=== PATIENT | female | born 1950 | race Caucasian/White ===

== ENCOUNTER → 2016-04-15 | Outpatient (CLI) | payer BC ==
[~2016-04-15] MED LIST: ADVIN25/60 INH; ASPI-232 PO; AZAT50TA17 PO; CALC600T24 PO; CONJ0.3T3 PO; GADAVIST IV PRN; MULT-513 PO; PRED-301 PO
--- NOTE | 2016-04-15 15:53 | DIAGNOSTIC IMAGING REPORT ---
MRI OF THE THORACIC SPINE COMBO CLINICAL HISTORY: Thoracic back pain. Reported history of an abnormal chest CT at an outside institution. COMPARISON STUDY: No priors. TECHNIQUE: MRI of the thoracic spine is performed utilizing various T1 and T2-weighted sequences in the axial and sagittal planes. Contrast-enhanced sequences were acquired following the IV administration of 7 cc of Gadavist. FINDINGS: Vertebral body height and alignment are maintained throughout the thoracic spine. Normal marrow signal intensity is preserved throughout the visualized bony structures. Tiny anterior osteophytes are noted throughout. The spinous processes appear intact. A hemangioma is incidentally noted in the body of T12. No destructive bony lesion is seen. Mild degenerative disc desiccation is seen throughout the thoracic region. No large disc herniation is seen. Tiny posterior disc osteophyte complexes are seen at T5-T6 and T7-T8. The central canal is widely patent. No significant neural foraminal stenosis is seen throughout the thoracic spine. The thoracic spinal cord is normal in morphology and signal intensity. No abnormal enhancement is identified on the postcontrast images. There is a 1.5 cm T2 isointense to slightly hyperintense and STIR markedly hyperintense ovoid lesion identified within the right T8-T9 neural foramen. This is best seen on sagittal STIR image #5. This is T1 hypointense, and shows no discernible contrast enhancement. The paraspinous soft tissues are otherwise normal as visualized. The lungs are grossly clear, but not well evaluated by MRI. IMPRESSION: 1. No acute bony abnormality is seen involving the thoracic spine. 2. There is no disc herniation, central canal stenosis, or neural foraminal narrowing identified. 3. There is a 1.5 cm well-circumscribed lesion without discernible enhancement identified in the right neural foramen of T8-T9. 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 The signal characteristics are somewhat atypical for a nerve sheath cyst which is a differential consideration. Dictated: 04/15/2016 3:22 PM Transcribed: 04/15/2016 3:53 PM Jackie Electronically signed by: Bj Gutierrez M.D. 04/15/2016 3:57 PM Dictated Date/Time: 04/15/2016 3:22 PM
== END | disposition home or self-care (01) ==
LOC: C.MRI 13:53
PROVIDERS: ATTEND Allergy & Immunology Allergy
DX: R93.8 Abnormal findings on diagnostic imaging of other specified body structures (principal); R93.7 Abnormal findings on diagnostic imaging of other parts of musculoskeletal system

== ENCOUNTER → 2016-05-13 | Outpatient (CLI) | payer BC ==
[~2016-05-13] MED LIST changes: -GADAVIST IV PRN
--- NOTE | 2016-05-14 13:17 | MAMMOGRAPHY REPORT ---
BILATERAL DIGITAL SCREENING MAMMOGRAM WITH CAD: 05/13/2016 TECHNIQUE: Current study was also evaluated with a Computer Aided Detection (CAD) system. Bilatera l CC and MLO views were obtained. COMPARISON: Comparison is made to exams dated: 08/12/2011 mammogram, 06/11/2010 mammogram - [facility], 08/29/2008, and 08/31/2008. BREAST COMPOSITION: There are scattered areas of fibroglandular density in both breasts. FINDINGS: There is an 11 mm mass with obscured margins in the left upper inner quadrant, for which spot compre ssion tomosynthesis views and possible breast ultrasound are recommended for further evaluation. A smaller 4 mm mass is also seen within the left medial breast and a 5 mm mass is also seen lateral to the larger mass on the cc view, for which spot compression tomosynthesis views and possible ultraso und are also recommended. These likely represent cysts. The remainder of both breasts demonstrate no suspicious masses, calcifications, or areas of architec tural distortion. Scattered bilateral benign-appearing calcifications are noted. Small benign-appe aring circumscribed benign-appearing masses in the right breast are noted, which likely represent cy sts. IMPRESSION: ACR BI-RADS CATEGORY 0: INCOMPLETE EVALUATION: NEED ADDITIONAL IMAGING EVALUATION Left breast masses, for which additional imaging evaluation is recommended. The patient will be call ed to schedule an appointment. Approximately 10% of breast cancers are not detected with mammography. A negative mammographic repor t should not delay biopsy if a clinically suggestive mass is present. Nayely Flores M.D. ah/:05/13/2016 15:43:55 Corn Husk Baler: Stephanie KNIGHT)(Cesar), [facility] letter sent: Addl Imaging 0 BI-RADS Code: ACR BI-RADS Category 0: Incomplete Evaluation: Need Additional Imaging Evaluation
== END | disposition home or self-care (01) ==
LOC: C.MAMM 09:39
PROVIDERS: ATTEND Allergy & Immunology Allergy
DX: Z12.31 Encounter for screening mammogram for malignant neoplasm of breast (principal); N63 Unspecified lump in breast

== ENCOUNTER → 2016-06-01 | Outpatient (CLI) | payer BC ==
--- NOTE | 2016-06-01 14:28 | MAMMOGRAPHY REPORT ---
UNILATERAL LEFT DIGITAL DIAGNOSTIC MAMMOGRAM TOMOSYNTHESIS AND TARGETED LEFT ULTRASOUND: 06/01/2016 CLINICAL HISTORY: 65 year-old called back from screening mammography for left breast masses. Family history of breast cancer = 2 nieces and a paternal aunt. Possible family history of BRCA. TECHNIQUE: Spot compression 2-D digital and tomosynthesis left CC and MLO views were obtained. COMPARISON: Comparison is made to exams dated: 05/13/2016 mammogram, 08/12/2011 mammogram, 06/11/2010 [facility], 08/29/2008, and 08/31/2008. BREAST COMPOSITION: There are scattered areas of fibroglandular density in the left breast. FINDINGS: There are scattered benign-appearing calcifications throughout the left breast. No new cedeño spicious grouping or cluster of microcalcifications is identified. No focal areas of architectural distortion on the tomosynthesis images. However, there are multiple circumscribed masses identified in the left breast, predominantly with circumscribed borders. The dominant mass measuring 11 mm in the upper inner approximate 11:00 left breast does not have definitely circumscribed borders on the tomosynthesis images. Further evaluation with ultrasound was performed throughout the left breast. Real-time high-resolution ultrasound was performed throughout the left breast. Multiple cystic and/ or benign-appearing solid masses are identified including: In the 12:00 periareolar left breast ther e is an oval parallel hypoechoic mass measuring 5.8 x 3.5 x 3.5 mm. Another nearly anechoic circums cribed parallel mass is seen in the 11:00 left breast, 1 cm from the nipple, measuring 4.0 x 3.0 x 4 .7 mm. There is an anechoic benign simple cyst with circumscribed borders and posterior acoustic en hancement in the 10:00 left breast, 2 cm from the nipple, measuring 8.2 x 7.1 x 8.7 mm. This correl ates well with the dominant mammographic mass in which the borders were not definitely circumscribed mammographically. This confirms benignity. Another hypoechoic cystic-appearing oval circumscribed mass is identified in the 9:00 left breast, 1 cm from the nipple, measuring 3.8 x 3.2 x 3.7 mm. No suspicious solid mass or irregular mass is identified. IMPRESSION: ACR-BI-RADS CATEGORY 3: PROBABLY BENIGN, TARGETED ULTRASOUND ACR-BI-RADS CATEGORY 3: ME OBABLY BENIGN 1. There are probable fibrocystic changes within the left breast identified on ultrasound. In parti cular, the dominant mammographic mass without circumscribed mammographic borders correlates with a b enign anechoic simple cyst on ultrasound. This confirms benignity and no further close follow-up is needed at this time. 2. There are other smaller sonographic masses with circumscribed borders and are not definitely ane choic to confirm benign simple cysts. These could represent complicated cysts or benign-appearing s olid masses. Nevertheless, a short interval follow-up left mammogram and repeat targeted ultrasound in the 9:00, 10:00 and 11:00 and 12:00 axes is recommended to ensure stability in 6 months. These results and recommendations were discussed with the patient at the time of the exam. She tent atively scheduled a follow-up appointment prior to leaving our department. Approximately 10% of breast cancers are not detected with mammography. A negative mammographic repor t should not delay biopsy if a clinically suggestive mass is present. Yoselin Duron M.D. ay/:06/01/2016 12:07:20 [place] Supervisor: Gabby JAVIER(Glory)(Cesar), [facility] letter sent: Follow Up Recommended 3 BI-RADS Code: ACR-BI-RADS Category 3: Probably Benign Ultrasound BI-RADS: ACR-BI-RADS Category 3: P robably Benign
== END | disposition home or self-care (01) ==
LOC: C.MAMM 10:55
PROVIDERS: ATTEND Physician Assistant Medical
DX: N63 Unspecified lump in breast (principal)

== ENCOUNTER → 2016-07-10 | Outpatient (CLI) | payer BC ==
[2016-07-10 14:38] LABS: BASO % 0.5 %; BASO ABS # 0.03 K/uL (0-0.2); COMPLETE YES; EOS % 0.8 %; HEMATOCRIT 44.6 % (37-47); IG% 0.3 %; LYMPH % 9.5 %; LYMPH ABS # 0.59 K/uL (1.2-3.4); MEAN CELL VOLUME 90.7 fL (80-100); MEAN CORPUSCULAR HEMOGLOBIN 29.3 pg (25-34); MEAN CORPUSCULAR HGB CONC 32.3 g/dl (32-36); MONO % 9.5 %; NEUT % 79.4 %; PLATELET COUNT 209 K/uL (130-400); RED BLOOD COUNT 4.92 M/uL (4.2-5.4); WHITE BLOOD COUNT 6.18 K/uL (4.8-10.8)
[2016-07-10 14:46] LABS: ALT/SGPT 28 U/L (12-78); AST/SGOT 19 U/L (15-37); BLOOD UREA NITROGEN 16 mg/dl (7-18); BUN/CREATININE RATIO 25.2 (10-20); CALCIUM 9.1 mg/dl (8.5-10.1); CARBON DIOXIDE 32 mmol/L (21-32); CHLORIDE 100 mmol/L (98-107); CREATININE 0.62 mg/dl (0.60-1.20); GLUCOSE 116 mg/dl (70-99); POTASSIUM 3.7 mmol/L (3.5-5.1); SODIUM 138 mmol/L (136-145)
[2016-07-10 14:49] LABS: ALB/GLOB RATIO 1.2 (0.9-2); ALKALINE PHOSPHATASE 32 U/L (45-117)
== END | disposition home or self-care (01) ==
LOC: C.LAB1850 12:15
PROVIDERS: ATTEND Internal Medicine Pulmonary Disease
DX: Z00.00 Encounter for general adult medical examination without abnormal findings (principal); J44.9 Chronic obstructive pulmonary disease, unspecified; R92.8 Other abnormal and inconclusive findings on diagnostic imaging of breast; D36.10 Benign neoplasm of peripheral nerves and autonomic nervous system, unspecified; Z79.899 Other long term (current) drug therapy; R73.9 Hyperglycemia, unspecified

== ENCOUNTER → 2016-09-17 | Outpatient (CLI) | payer BC | END | disposition home or self-care (01) | LOC: C.PAPS 15:40 | PROVIDERS: ATTEND Obstetrics & Gynecology | DX: Z12.4 Encounter for screening for malignant neoplasm of cervix (principal) ==

== ENCOUNTER → 2016-11-12 | Outpatient (CLI) | payer BC ==
[2016-11-12 14:41] LABS: BASO % 0.5 %; BASO ABS # 0.03 K/uL (0-0.2); COMPLETE YES; EOS % 0.6 %; HEMATOCRIT 41.2 % (37-47); IG% 0.6 %; LYMPH % 8.8 %; LYMPH ABS # 0.57 K/uL (1.2-3.4); MEAN CELL VOLUME 90.9 fL (80-100); MEAN CORPUSCULAR HEMOGLOBIN 30.9 pg (25-34); MEAN PLATELET VOLUME 9.6 fL (7.4-10.4); MONO % 7.7 %; NEUT % 81.8 %; PLATELET COUNT 215 K/uL (130-400); RED BLOOD COUNT 4.53 M/uL (4.2-5.4); WHITE BLOOD COUNT 6.49 K/uL (4.8-10.8)
[2016-11-12 15:11] LABS: ALT/SGPT 17 U/L (12-78); BLOOD UREA NITROGEN 15 mg/dl (7-18); CALCIUM 8.9 mg/dl (8.5-10.1); CARBON DIOXIDE 33 mmol/L (21-32); CHLORIDE 103 mmol/L (98-107); CREATININE 0.57 mg/dl (0.60-1.20); GLUCOSE 116 mg/dl (70-99); SODIUM 139 mmol/L (136-145)
[2016-11-12 15:13] LABS: ALKALINE PHOSPHATASE 61 U/L (45-117); AST/SGOT 13 U/L (15-37)
== END | disposition home or self-care (01) ==
LOC: C.LAB1850 13:45
PROVIDERS: ATTEND Internal Medicine Pulmonary Disease
DX: R31.9 Hematuria, unspecified (principal)

== ENCOUNTER → 2016-11-30 | Outpatient (CLI) | payer BC ==
--- NOTE | 2016-11-30 13:34 | MAMMOGRAPHY REPORT ---
UNILATERAL LEFT DIGITAL DIAGNOSTIC MAMMOGRAM TOMOSYNTHESIS WITH CAD AND TARGETED LEFT ULTRASOUND: 11/07 CLINICAL HISTORY: 66-year-old woman presents for follow-up of probable fibrocystic changes within the left breast. She recently tested positive for BRCA1 gene. Family history of breast cancer. TECHNIQUE: Left breast tomosynthesis in addition to standard 2D mammography was performed. Current st udy was also evaluated with a Computer Aided Detection (CAD) system. COMPARISON: Comparison is made to exams dated: 06/01/2016 mammogram, 06/01/2016 ultrasound, 05/13/2016 m ammogram, 08/12/2011 mammogram, 06/11/2010 mammogram - [facility], and 08/31/2008. BREAST COMPOSITION: The tissue of the left breast is heterogeneously dense, which may obscure small masses. FINDINGS: There are multiple circumscribed masses in the left breast, fluctuating in size comparing to prior tomosynthesis mammograms. No focal area of architectural distortion or suspicious spiculate d or irregular mass is identified. There is a new grouping of microcalcifications in the upper outer middle one third of the left breast, for which additional spot magnification views were obtained. O n the spot magnification views, there is a 2.8 mm cluster of punctate and round microcalcifications, that was not present on prior mammograms and is therefore indeterminate. Although these microcalcifi cations could represent benign fibrocystic changes, DCIS cannot be completely excluded given the inte rval development. Targeted ultrasound was performed in the left breast to reevaluate the probably benign masses identif ied in the 9:00, 10:00, 11:00 and 12:00 axes on prior ultrasound. In the 12:[address], there is a lobulated nearly anechoic cystic appearing mass with posterior acoustic enhancement, m easuring 5.7 x 3.7 x 4.7 mm. This mass appears more anechoic and cystic when comparing to the prior ultrasound. At that time, it measured 5.8 x 3.5 x 3.5 mm and is considered unchanged in size. An an echoic benign simple cyst is again seen in the 10:00 to 11:00 left breast, 1 cm from the nipple, jeronimo uring 8.1 mm. In the 11:00 axis, 1 cm from the nipple, there is a hypoechoic circumscribed parallel benign-appearing solid versus cystic mass measuring 4.2 x 3.3 x 3.9 mm, previously measured 4.0 x 3.0 x 4.7 mm and is considered unchanged. In the 9:00 axis, 1 cm from the nipple, there are 2 adjacent benign-appearing solid versus cystic masses. The first measures 3.8 x 4.6 x 3.2 mm, previously measu red 3.8 x 3.2 x 3.7 mm and visually does not appear significantly changed, and the second measures 2. 9 x 3.7 x 4.2 mm, which was not previously identified. IMPRESSION: ACR BI-RADS CATEGORY 4: SUSPICIOUS, TARGETED ULTRASOUND ACR BI-RADS CATEGORY 4: SUSPICIO US 1. There is a new small 2.8 mm cluster of round and punctate microcalcifications in the upper outer middle one third of the left breast, for which stereotactic guided biopsy is recommended given the in terval development of these microcalcifications and personal history of BRCA1 gene. 2. Given the new history of BRCA1 positivity, I would recommend a bilateral breast MRI for additiona l screening at the patient is at increased risk for developing breast cancer. Therefore, I would lik e to obtain this breast MRI prior to stereotactic biopsy to assess for any abnormal enhancement or ot her suspicious lesion that could be worked up and/or biopsied at the same time as left breast stereot actic biopsy. 3. The benign-appearing solid versus cystic masses in the upper inner 9:00 through 12:00 axes of the left breast are generally stable comparing to the prior ultrasound. A new benign-appearing solid ve rsus cystic mass is seen in the 9:00 left breast, 1 cm from the nipple for which a repeat targeted ul trasound is recommended. These findings most likely represent benign fibrocystic changes, but close attention at MRI of the upper inner quadrant of the left breast could assess for any suspicious enhan cing mass that may warrant biopsy. These results and recommendations were discussed with the patient at the time of the exam. I am firs t recommending a bilateral breast MRI and once that is reviewed, pending further recommendations, meghna styles recommend left breast stereotactic biopsy. Approximately 10% of breast cancers are not detected with mammography. A negative mammographic report should not delay biopsy if a clinically suggestive mass is present. Yoselin Duron M.D. ay/:11/30/2016 12:38:32 Engraver Pantograph: Hiwot Hartley RT(R)(M), [facility] letter sent: Abnormal 4/5 BI-RADS Code: ACR BI-RADS Category 4: Suspicious Ultrasound BI-RADS: ACR BI-RADS Category 4: Suspici ous
== END | disposition home or self-care (01) ==
LOC: C.MAMM 09:39
PROVIDERS: ATTEND Internal Medicine Pulmonary Disease
DX: R92.0 Mammographic microcalcification found on diagnostic imaging of breast (principal); N63 Unspecified lump in breast

== ENCOUNTER → 2016-12-07 | Outpatient (CLI) | payer BC ==
[~2016-12-07] MED LIST changes: +GADAVIST IV PRN
--- NOTE | 2016-12-08 12:20 | MAMMOGRAPHY REPORT ---
BREAST MRI OF BOTH BREASTS : 12/07/2016 CLINICAL HISTORY: 66 year old woman with new left breast microcalcifications and recently tested posi tive for BRCA 1. COMPARISON: Comparison is made to exams dated: 11/30/2016 mammogram, 11/30/2016 ultrasound, 06/01/2016 mammogram, 05/13/2016 mammogram, 08/12/2011 mammogram, and 06/11/2010 mammogram - [facility]. TECHNIQUE : Using a 1.5 Kendra magnet and dedicated breast coil, multisequence axial images were obtai gricelda through the breasts. After uneventful IV administration of 6 mL of Gadavist, dynamic multiphase contrast-enhanced axial images, and sagittal postcontrast were obtained. Temporal subtraction axial images and 3-D MIP images are provided. Everything was then reviewed on a 3-D workstation, [employer]. FINDINGS: There is no significant background parenchymal enhancement in the breasts. There are scattered T2 hyp erintense cysts with the largest cyst in the left upper inner quadrant measuring 8 mm. There is no cedeño spicious enhancing mass, non-mass enhancement, suspicious kinetics or architectural distortion bilate rally. No focal skin thickening or nipple retraction. No axillary adenopathy. There is a round 15 mm T2 hyperintense, nonenhancing mass in the superior aspect of the left hepatic lobe. This field of view is not optimized to enaluate the liver, but this likely represents the same 15 mm mass described on a prior CT abdomen/pelvis dated 09/11/13 and most likely represents a cyst. There is atelectasis in the dependent/anterior right and left lungs. IMPRESSION: ACR BI-RADS CATEGORY 4: SUSPICIOUS 1. No suspicious enhancing masses or non-mass enhancement identified in the breasts on MRI. There are several cysts bilaterally, compatible with benign fibrocystic changes. 2. Stereotactic guided left breat biopsy is still recommended as DCIS does not always avidly enhance on MRI and this new finding of faint grouped microcalcifications should be worked up in the modality in which it is best visualized. 3. Bilateral atelectasis and probable 15 mm left hepatic lobe cyst. 4. Pending benign pathology results from stereotactic guided biopsy, would continue with annual mammo graphy and additional screening breast MRI, given the personal history of BRCA 1 positivity. The patient will be called to schedule an appointment. Yoselin Duron M.D. ay/:12/07/2016 21:48:04 Bacteriologist Pharmaceutical: rn concurrent review, [facility] letter sent: Abnormal 4/5 BI-RADS Code: ACR BI-RADS Category 4: Suspicious
== END | disposition home or self-care (01) ==
LOC: C.MRI 06:40
PROVIDERS: ATTEND Internal Medicine Pulmonary Disease
DX: N60.01 Solitary cyst of right breast (principal); N60.02 Solitary cyst of left breast; R92.0 Mammographic microcalcification found on diagnostic imaging of breast; J98.11 Atelectasis; Z15.01 Genetic susceptibility to malignant neoplasm of breast

== ENCOUNTER → 2016-12-22 | Outpatient (CLI) | payer BC ==
[~2016-12-22] MED LIST changes: -GADAVIST IV PRN
--- NOTE | 2016-12-22 13:33 | Discharge Instructions ---
Discharge Instructions Procedure Procedure Date: Dec 22, 2016. Reason for visit: Left Microcalcifications. Discharge Discharge Date: Dec 22, 2016. Discharge Diagnosis: post left breast stereotactic guided biopsy Instructions Activity Recommendations: Additional Limitations (see below) Return to School/Work: no limitations Recommended Home Diet: No Limitations Provider Instructions: ACTIVITY RECOMMENDATIONS: * No lifting, pushing, pulling or exercising the affected side for three days. RETURN TO SCHOOL/WORK: * You may return to work/school after the procedure, but do not perform any strenuous activities for 24 to 48 hours. MEDICATIONS: * Tylenol (two 325 mg) every four to six hours if needed for mild pain (if not allergic to Tylenol). DIET: * Resume previous diet. SPECIAL CARE INSTRUCTIONS: * Keep biopsy site dry for 24 hours. May shower after 24 hours, but do not soak (bathe) incision. * May remove Tegaderm (plastic patch) tomorrow AFTER showering. * Leave the steri-strips on for one week. Allow the steri-strips to fall off by themselves. If not off after one week, you may remove them. You may place a Bandaid crosswise over the strips, if desired. * Apply ice 10 minutes on and 10 minutes off as needed. * Wear a bra at bedtime to sleep more comfortably for 2-3 days. * Your referring physician should have the results after approximately 5 to 7 business days. * Call for unusual bleeding, fever, drainage, etc or if you have any questions call [phone] during normal business hours or after hours call Dr Duron, . FOLLOW UP VISIT: Follow-up with Referring Physician as scheduled. Allergies Coded Allergies: Morphine (Verified Allergy, Mild, HALLUCINATIONS, 09/17/15) Scopolamine (Verified Allergy, Mild, FLU-LIKE SYMPTOMS, 09/17/15) Nate Schuster Recommendations: Call your doctor if: * Temperature above 101 degrees * Pain not relieved by pain medicine ordered * There is increased drainage or redness from any incision * You have any unanswered questions or concerns. Your Doctors Instructions noted above were prepared by provider Yoselin Duron. Patient Signature Section: Patient Instructions Signature Page Shraddha Razo Patient (or Guardian) Signature/Date: I have read and understand the instructions given to me by my caregivers. Caregiver/RN/Doctor Signature/Date: The above-named patient and/or guardian has received patient instructions on this date. + Original Patient Signature Page (only) stays with chart. Please make copy for patient.
--- NOTE | 2016-12-22 15:20 | MAMMOGRAPHY REPORT ---
UNILATERAL LEFT DIGITAL DIAGNOSTIC MAMMOGRAM: 12/22/2016 CLINICAL HISTORY: Status post left breast stereotactic guided biopsy of a new grouping of punctate an d round microcalcifications in the slightly lateral and superior anterior left breast. Please refer to the report from left breast stereotactic guided biopsy performed at the same time for full detail. IMPRESSION: POST PROCEDURE IMAGING FOR MARKER PLACEMENT Please refer to the report from left breast stereotactic guided biopsy performed at the same time for full detail. Approximately 10% of breast cancers are not detected with mammography. A negative mammographic report should not delay biopsy if a clinically suggestive mass is present. Yoselin Duron M.D. ay/:12/22/2016 13:35:03 Handbag Framer: Hiwot JAVIER(Glory)(M), [facility] BI-RADS Code: Post Procedure Imaging For Marker Placement
--- NOTE | 2016-12-22 15:20 | MAMMOGRAPHY REPORT ---
STEREOTACTIC GUIDED BIOPSY LEFT BREAST: 12/22/2016 CLINICAL HISTORY: New indeterminate cluster of round and punctate microcalcifications in the left upp er outer quadrant. Patient presented for stereotactic guided biopsy. COMPARISON: Comparison is made to exams dated: 12/07/2016 breast MRI, 11/30/2016 ultrasound, 11/30/2016 mammogram, 06/01/2016 mammogram, 06/01/2016 ultrasound, and 05/13/2016 mammogram - [facility]. PATIENT CONSENT: After explaining the risks, benefits and alternatives of the procedure to the patien t, informed consent was obtained both verbally and in writing. Specific risks include: Bleeding, inf ection, puncture of adjacent structure, pain, nontarget biopsy, sampling error, metal allergy and med ication reaction. PROCEDURE DESCRIPTION: A time-out was performed and the left breast was confirmed as the site of biop sy. The patient was placed prone on the stereotactic biopsy table and the breast was placed in CC fro m above compression. A pattern shop supervisor image was obtained that demonstrated the clustered microcalcifications i n question. They are amenable to sterotactic biopsy. Then +15 and -15 stereo pair images were obta ined. The calcifications were targeted utilizing the coordinates obtained by the computer. The skin was prepped with Betadine. 1% Lidocaine with and without epinipherine was administered as local anest hesia. A small skin incision was made. Through the incision, the needle was inserted to the depth de termined by the computer. 6 samples were obtained using a [employer]aku[employer] 9-gauge vacuum-assisted biopsy device. The specimen radiograph demonstrated several outside industrial sales representative microcalcifications, therefore, a metallic marker was placed at the biopsy site. There was no immediate complication. Hemostasis was a chieved after several minutes of manual compression. The samples were sent to pathology in two appro priately labeled containers, "with calcifications" and "without calcifications". All of the samples w ere obtained from the same single biopsy site. Postprocedure CC and ML views of the left breast were obtained. There is a new dumbbell-shaped biop sy marker clip and no significant hematoma in the upper outer anterior left breast, at the site of th e biopsied clustered calcifications in question. There is superior migration of the biopsy marker cl ip by 19 mm, likely due to accordion effect. IMPRESSION: STEREOTACTIC GUIDED BIOPSY Status post left breast stereotactic guided biopsy of a small cluster of round and punctate microcalc ifications in the upper outer anterior left breast, with biopsy marker placed at the site. The patient will receive notification of the biopsy results from her referring physician. Yoselin Duron M.D. ay/:12/22/2016 14:08:24 Boiler Operator: Hiwot KNIGHT)(Cesar), [facility]
== END | disposition home or self-care (01) ==
LOC: C.MAMM 12:31
PROVIDERS: ATTEND Internal Medicine Pulmonary Disease
DX: R92.0 Mammographic microcalcification found on diagnostic imaging of breast (principal)

== ENCOUNTER → 2017-03-24 | Outpatient (CLI) | payer BC ==
[2017-03-24 14:26] LABS: BASO % 0.3 %; BASO ABS # 0.02 K/uL (0-0.2); EOS % 1.3 %; EOS ABS # 0.08 K/uL (0-0.5); HEMATOCRIT 41.8 % (37-47); HEMOGLOBIN 13.9 g/dL (12.0-16.0); IG# 0.02 K/uL (0.00-0.02); LYMPH % 11.5 %; LYMPH ABS # 0.71 K/uL (1.2-3.4); MEAN CELL VOLUME 89.3 fL (80-100); MEAN CORPUSCULAR HEMOGLOBIN 29.7 pg (25-34); MEAN CORPUSCULAR HGB CONC 33.3 g/dl (32-36); MEAN PLATELET VOLUME 9.6 fL (7.4-10.4); MONO % 8.4 %; MONO ABS # 0.52 K/uL (0.11-0.59); NEUT % 78.2 %; NEUT ABS # 4.83 K/uL (1.4-6.5); PLATELET COUNT 215 K/uL (130-400); RED CELL DISTRIBUTION WIDTH CV 14.3 % (11.5-14.5); RED CELL DISTRIBUTION WIDTH SD 46.8 fL (36.4-46.3); WHITE BLOOD COUNT 6.18 K/uL (4.8-10.8)
[2017-03-24 15:04] LABS: ALBUMIN 3.4 gm/dl (3.4-5.0); ALT/SGPT 19 U/L (12-78); AST/SGOT 14 U/L (15-37); BLOOD UREA NITROGEN 17 mg/dl (7-18); CALCIUM 9.3 mg/dl (8.5-10.1); CARBON DIOXIDE 36 mmol/L (21-32); GLUCOSE 90 mg/dl (70-99); POTASSIUM 4.1 mmol/L (3.5-5.1); SODIUM 137 mmol/L (136-145)
[2017-03-24 15:07] LABS: ALKALINE PHOSPHATASE 71 U/L (45-117); TOTAL PROTEIN 6.8 gm/dl (6.4-8.2)
== END | disposition home or self-care (01) ==
LOC: C.LAB1850 13:27
PROVIDERS: ATTEND Internal Medicine Pulmonary Disease
DX: R31.9 Hematuria, unspecified (principal)

== ENCOUNTER → 2017-05-13 | Outpatient (CLI) | payer BC | END | disposition home or self-care (01) | LOC: C.MAMM 13:23 | PROVIDERS: ATTEND Internal Medicine Pulmonary Disease | DX: M31.30 Wegener's granulomatosis without renal involvement (principal); Z79.899 Other long term (current) drug therapy; J44.9 Chronic obstructive pulmonary disease, unspecified; Z79.52 Long term (current) use of systemic steroids ==

== ENCOUNTER → 2017-05-13 | Outpatient (CLI) | payer BC ==
--- NOTE | 2017-05-13 14:25 | DIAGNOSTIC IMAGING REPORT ---
TWO VIEW CHEST CLINICAL HISTORY: Dyspnea. COPD. FINDINGS: PA and lateral chest radiographs are compared to study dated 02/25/2016. The PA view is degraded by patient rotation. The cardiomediastinal silhouette is unremarkable. Emphysema is suspected. There is no airspace consolidation or pleural effusion. Foci of parenchymal scarring are identified bilaterally. Apical scarring is observed. There is no pneumothorax. The skeletal structures are osteopenic. The bony thorax appears intact. IMPRESSION: Emphysematous change with no acute cardiopulmonary abnormality. Electronically signed by: Bj Gutierrez M.D. 05/13/2017 2:24 PM Dictated Date/Time: 05/13/2017 2:22 PM
[2017-05-13 15:34] LABS: BASO % 0.3 %; BASO ABS # 0.02 K/uL (0-0.2); EOS % 0.9 %; EOS ABS # 0.05 K/uL (0-0.5); HEMATOCRIT 41.3 % (37-47); HEMOGLOBIN 13.9 g/dL (12.0-16.0); IG# 0.02 K/uL (0.00-0.02); LYMPH % 13.3 %; LYMPH ABS # 0.78 K/uL (1.2-3.4); MEAN CELL VOLUME 89.6 fL (80-100); MEAN CORPUSCULAR HEMOGLOBIN 30.2 pg (25-34); MEAN CORPUSCULAR HGB CONC 33.7 g/dl (32-36); MEAN PLATELET VOLUME 9.6 fL (7.4-10.4); MONO % 6.7 %; MONO ABS # 0.39 K/uL (0.11-0.59); NEUT % 78.5 %; PLATELET COUNT 212 K/uL (130-400); RED CELL DISTRIBUTION WIDTH CV 14.2 % (11.5-14.5); RED CELL DISTRIBUTION WIDTH SD 46.5 fL (36.4-46.3); WHITE BLOOD COUNT 5.86 K/uL (4.8-10.8)
[2017-05-13 15:42] LABS: ALBUMIN 3.4 gm/dl (3.4-5.0); ALT/SGPT 19 U/L (12-78); BLOOD UREA NITROGEN 19 mg/dl (7-18); CARBON DIOXIDE 31 mmol/L (21-32); CREATININE 0.68 mg/dl (0.60-1.20); GLUCOSE 104 mg/dl (70-99); POTASSIUM 4.2 mmol/L (3.5-5.1); SODIUM 137 mmol/L (136-145)
[2017-05-13 15:45] LABS: ALKALINE PHOSPHATASE 69 U/L (45-117); AST/SGOT 16 U/L (15-37); TOTAL PROTEIN 6.9 gm/dl (6.4-8.2)
[2017-05-13 16:11] LABS: INFLUENZA B ANTIGEN Neg for Influ B (NEG)
== END | disposition home or self-care (01) ==
LOC: C.RAD1850 14:01
PROVIDERS: ATTEND Physician Assistant Medical
DX: J44.9 Chronic obstructive pulmonary disease, unspecified (principal); R06.02 Shortness of breath; R31.9 Hematuria, unspecified; R19.7 Diarrhea, unspecified; R68.89 Other general symptoms and signs

== ENCOUNTER → 2017-06-23 | Outpatient (CLI) | payer BC ==
--- NOTE | 2017-06-23 15:13 | MAMMOGRAPHY REPORT ---
BILATERAL DIGITAL SCREENING MAMMOGRAM TOMOSYNTHESIS WITH CAD: 06/23/2017 CLINICAL HISTORY: Routine screening. Patient has no complaints. TECHNIQUE: Breast tomosynthesis in addition to standard 2D mammography was performed. Current study was also evaluated with a Computer Aided Detection (CAD) system. COMPARISON: Comparison is made to exams dated: 12/22/2016 mammogram, 11/30/2016 mammogram, 06/01/2016 mammogram, 05/13/2016 mammogram, 08/12/2011 mammogram, and 06/11/2010 mammogram - [facility]. BREAST COMPOSITION: The tissue of both breasts is heterogeneously dense, which may obscure small mas ses. FINDINGS: There are fluctuating circumscribed masses in the left breast, the circumscribed borders ar e best seen on the tomosynthesis images. Decreasing masses in the right breast. A stable dumbbell-s haped biopsy marker clip in the left upper outer quadrant. Scattered and grouped rounded punctate be nign-appearing micro calcifications. No new suspicious mass, architectural distortion or cluster of microcalcifications is seen. IMPRESSION: ACR BI-RADS CATEGORY 1: NEGATIVE There is no mammographic evidence of malignancy. A 1 year screening mammogram is recommended. The pa tient will receive written notification of the results. Approximately 10% of breast cancers are not detected with mammography. A negative mammographic report should not delay biopsy if a clinically suggestive mass is present. Yoselin Duron M.D. ay/:06/23/2017 12:39:03 Hand Hose Cutter: Mildred JAVIER(Glory)(Cesar)(RAIN), [facility] letter sent: Normal 1/2 BI-RADS Code: ACR BI-RADS Category 1: Negative
== END | disposition home or self-care (01) ==
LOC: C.MAMM 10:30
PROVIDERS: ATTEND Obstetrics & Gynecology
DX: Z12.31 Encounter for screening mammogram for malignant neoplasm of breast (principal)

== ENCOUNTER → 2017-07-15 | Outpatient (CLI) | payer BC ==
--- NOTE | 2017-07-15 14:36 | DIAGNOSTIC IMAGING REPORT ---
RIGHT FIFTH FINGER 3 VIEWS CLINICAL HISTORY: M79.646 finger pain COMPARISON: None. DISCUSSION: No acute fractures are visualized. 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 There is a small erosion involving the distal aspect of the middle phalanx of the fifth finger. IMPRESSION: 1. No acute fractures 2. 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 There is a small erosion at the level of the distal interphalangeal joint. There is associated soft tissue swelling. Electronically signed by: Ever Gordon M.D. 07/15/2017 2:35 PM Dictated Date/Time: 07/15/2017 2:33 PM
== END | disposition home or self-care (01) ==
LOC: C.RAD1850 14:06
PROVIDERS: ATTEND Physician Assistant Medical
DX: M79.646 Pain in unspecified finger(s) (principal); M13.88 Other specified arthritis, other site

== ENCOUNTER → 2017-07-19 | Outpatient (CLI) | payer BC | END | disposition home or self-care (01) | LOC: C.LABBFT 10:39 | PROVIDERS: ATTEND Physician Assistant Medical | DX: M79.646 Pain in unspecified finger(s) (principal) ==